=== PATIENT | female | born 1965 | race Caucasian/White ===

== ENCOUNTER 2024-10-29 06:47 | Day surgery (SDC) | payer MEDICARE, BC, SELFPAY ==
[2024-10-22 14:17] VITALS: BMI 37.8
[2024-10-29 07:46] VITALS: BP 155/96; PULSE 73; RESP 18; TEMP 36.5; O2SAT 97
[2024-10-29] MEDS: LACTATED RINGERS 1000ML 1,000 ML 50 ML IV (07:56)
--- NOTE | 2024-10-29 08:07 | P.PNANES_ITS ---
[facility] Disclaimer: The information contained in this section may have been updated after the patient was seen, as this information can be updated by other users. Medical History Small vessel disease, cerebrovascular Cervical dystonia PTSD (post-traumatic stress disorder) Anxiety Schatzki's ring Osteopenia Internal hemorrhoid Hypersomnia Hiatal hernia Fibromyalgia GERD (gastroesophageal reflux disease) Depression Cricopharyngeal spasm Colon polyps Back pain Asthma Surgical History History of colonoscopy with polypectomy History of removal of neck cyst History of rhinoplasty Family History Father Cancer Mother Cancer Grandfather Cancer Social History Smoking Status: Former smoker alcohol intake: never substance use type: denies use current occupational status: retired Travel in the last 8 weeks?: None caffeine: Yes Have you lived/traveled outside [place] in past 30 days?: No Contact w/someone who lives/traveled outside [place] past 30 days?: No Exposure to someone with infectious disease in past 14 days?: No Do you have a fever (greater than 100.4 F or 38 C)?: No Have you tested positive for COVID-19?: No Exposed to someone with COVID-19 in past 14 days?: No Do you have a sore throat?: No Do you have a cough?: No Do you have any weakness?: No Are you experiencing any nausea/vomitting?: No Do you have any diarrhea?: No Are you experiencing any unusual bleeding?: No Do you have any muscle aches/pain?: No Do you have any abdominal pain?: No Are you experiencing loss of taste or smell?: No [facility] Anesthesia Checklist Patient Identification Patient Identification: Arm Band Structural Data Admitted From: Home Planned Operative Procedure/s: EGD Consent for Planned Operative Procedure(s) Verified: Yes Verified Documents: Surgical Consent and History and Physical NPO Status Verified Time NPO: 00:00 Additional verifications Anesthesia Reactions: No Airway Assessment Mallampati Score:: Class II C-Spine Mobility Assessed: Yes TMJ Mobility Assessed: Yes Dentition: Good Dentition (upper dentures) Neurological Assessment Level of Consciousness: Awake, Alert and Appropriate Anesthesia Plan Anesthesia Risk discussed: Yes Anesthesia Plan: Verified ASA Class: II Anesthesia Type: MAC
--- NOTE | 2024-10-29 08:25 | P.HP_ITS ---
History of Present Illness *Admission Date: 10/29/24 *History of present illness: Mrs. Castillo is a 59-year-old female with GERD and Harrison's esophagus who is here for surveillance EGD. The examination is deemed medically necessary for surveillance EGD. The patient has been seen, interviewed and examined prior to the procedure by both myself and the anesthesia provider. [facility] Disclaimer: The information contained in this section may have been updated after the patient was seen, as this information can be updated by other users. Medical History Small vessel disease, cerebrovascular Cervical dystonia PTSD (post-traumatic stress disorder) Anxiety Schatzki's ring Osteopenia Internal hemorrhoid Hypersomnia Hiatal hernia Fibromyalgia GERD (gastroesophageal reflux disease) Depression Cricopharyngeal spasm Colon polyps Back pain Asthma Surgical History History of colonoscopy with polypectomy History of removal of neck cyst History of rhinoplasty Family History Father Cancer Mother Cancer Grandfather Cancer Social History Smoking Status: Former smoker alcohol intake: never substance use type: denies use current occupational status: retired Travel in the last 8 weeks?: None caffeine: Yes Have you lived/traveled outside [place] in past 30 days?: No Contact w/someone who lives/traveled outside [place] past 30 days?: No Exposure to someone with infectious disease in past 14 days?: No Do you have a fever (greater than 100.4 F or 38 C)?: No Have you tested positive for COVID-19?: No Exposed to someone with COVID-19 in past 14 days?: No Do you have a sore throat?: No Do you have a cough?: No Do you have any weakness?: No Are you experiencing any nausea/vomitting?: No Do you have any diarrhea?: No Are you experiencing any unusual bleeding?: No Do you have any muscle aches/pain?: No Do you have any abdominal pain?: No Are you experiencing loss of taste or smell?: No Review of Systems Review of Systems Review of systems (narrative): Negative *Cardiovascular Comments: Negative *Gastrointestinal Comments: Negative *Genitourinary Comments: Negative *Musculoskeletal Comments: Negative *Neurologic Comments: Negative Meds Home Medications and Allergies Home Medications ?Medication ?Instructions ?Recorded ?Confirmed ?Type aspirin 325 mg tablet 325 mg PO DAILY 08/27/24 10/29/24 History atorvastatin 20 mg tablet 20 mg PO DAILY 08/27/24 10/29/24 History baclofen 10 mg tablet 10 mg PO BID 08/27/24 10/29/24 History benazepril 40 mg tablet 40 mg PO DAILY 08/27/24 10/29/24 History dextroamphetamine-amphetamine 20 20 mg PO BID 08/27/24 10/29/24 History mg tablet (Adderall) diphenhydramine HCl 25 mg tablet 25 mg PO QID 08/27/24 10/29/24 History (Benadryl Allergy) duloxetine 60 mg capsule,delayed 60 mg PO DAILY 08/27/24 10/29/24 History release melatonin 5 mg capsule 5 mg PO HS 08/27/24 10/29/24 History metoclopramide HCl 5 mg tablet 5 mg PO QAC 08/27/24 10/29/24 History gyubmiot-vmn-xubcu acid 0.4 1 tab PO DAILY 08/27/24 10/29/24 History mg-lycopene 300 mcg-lutein 250 mcg tablet (Centrum Silver) omeprazole 40 mg capsule,delayed 40 mg PO DAILY 08/27/24 10/29/24 History release polyethylene glycol 3350 17 17 g PO DAILY 08/27/24 10/29/24 History gram/dose oral powder (Miralax) pregabalin 75 mg capsule (Lyrica) 75 mg PO BID 08/27/24 10/29/24 History prucalopride 2 mg tablet 2 mg PO DAILY 08/27/24 10/29/24 History (Motegrity) psyllium husk 3.4 gram/5.4 gram 1 tsp PO DAILY 08/27/24 10/29/24 History oral powder (Metamucil) New Prescriptions to Start Prescriptions: Allergies Allergy/AdvReac Type Severity Reaction Status Date / Time latex Allergy Mild ITCHING Verified 10/29/24 07:41 Surgical Glue Allergy Intermediate ITCHING Uncoded 10/29/24 07:41 Exam Data for Last 24 hours Vital signs and Labs for Last 24 Hours: Temp Pulse Resp BP Pulse Ox O2 Del Method 97.7 F 73 18 155/96 H 97 Room Air 10/29/24 07:46 10/29/24 07:46 10/29/24 07:46 10/29/24 07:46 10/29/24 07:46 10/29/24 07:46 *Routine HEENT Exam Head: Present normocephalic Eye: Present EOMI and PERRL ENT: Present mucous membranes moist *Routine Neck Exam Neck: Present supple *Routine Respiratory Exam Respiratory: Present CTA bilaterally *Routine Cardiovascular Exam Cardiovascular: Present RRR *Routine Abdominal Exam Abdominal: Present soft and normoactive bowel sounds; Absent tenderness *Routine Rectal Exam Rectal:: deferred *Routine Genitalia Exam Genitalia:: deferred *Routine Extremities Exam Extremities: Absent cyanosis, clubbing or edema *Routine Skin Exam Skin: Present warm; Absent rash *Routine Neurological Exam Neurological: Present alert and oriented X3 Assessment and Plan *Assessment and plan (1) Harrison's esophagus determined by endoscopy: Status: Acute Category: Medical Code(s): K22.70 - Harrison's esophagus without dysplasia (2) Bloating: Status: Acute Category: Medical Code(s): R14.0 - Abdominal distension (gaseous) Plan A/P: 1. History of Harrison's esophagus is the preprocedural diagnosis. The patient will be anesthetized/sedated using MAC sedation. The patient has been seen and examined. Cardiac and lung assessment prior to the examination is stable. Proceed with planned surveillance upper endoscopy.
[2024-10-29 08:30] VITALS: O2SAT 100
--- NOTE | 2024-10-29 08:33 | HMH.PROCNOTE ---
[facility] Procedure Note Date: 10/29/24 Time: 08:43 Procedure Note:: Upper Endoscopy Procedure Report: Esophagogastroduodenoscopy with cold biopsies Endoscopost: Elmo Cuello II, MD Referring Physician: Aneesh Perez MD Date of Procedure: October 29, 2024 Equipment: Olympus GIF 190 standard upper endoscope Sedation: MAC sedation Indications: Mrs. Castillo is a 59-year-old female with functional dyspepsia and history of Harrison's esophagus. She is doing well and is currently on baclofen, metoclopramide, omeprazole, MiraLAX and prucalopride. She was having a lot of constipation, bloating and reflux. This has improved. She still gets some intermittent gassiness. She reports no dysphagia or globus sensation. She was having more belching. Procedure: Prior to the procedure, a history and physical exam was performed, and patient's medications and allergies were reviewed. The risks, benefits and alternatives of the sedation and procedure were discussed with the patient. All questions were answered and informed consent was obtained. The patient was brought to the procedure room. Patient identification and proposed procedure were verified by the physician and the nurse. The patient was placed in a left lateral decubitus position and the scope was passed under direct vision. Throughout the procedure, the patient's blood pressure, pulse, and oxygen saturations were monitored continuously. The upper GI endoscopy was accomplished without difficulty. The patient tolerated the procedure well. Findings: The scope was passed directly into the upper esophagus and advanced to the fourth portion of duodenum and proximal jejunum. Cold biopsies were taken from the proximal jejunum for disaccharidase assay. The post bulbar duodenum and duodenal bulb were normal with normal mucosa and conniventes. The scope was withdrawn through a normal duodenal bulb and pylorus into the stomach. There was mild linear reactive gastropathy of the antrum. The body and fundus of the stomach were normal. Upon retroflexion there was no hiatal hernia. The scope was then withdrawn into the esophagus. There was no evidence of reflux esophagitis or Harrison's. There was a serrated Z-line and biopsies were taken at the GE junction (to rule out intestinal metaplasia of the GE junction). The remainder of the esophageal mucosa was normal. Impression: 1. Nonerosive GERD 2. Mild antral linear reactive gastropathy Plan: I will follow-up the biopsies. There is no evidence of Harrison's esophagus but she may have some intestinal metaplasia of the GE junction. Because of her gassiness and bloating, I will check the disaccharidase assay.
[2024-10-29 08:51] VITALS: BP 161/88; PULSE 90; RESP 16; TEMP 36.1; O2SAT 96
[2024-10-29 09:01] VITALS: BP 132/77; PULSE 80; RESP 16; O2SAT 96
[2024-10-29 09:11] VITALS: BP 143/75; PULSE 78; RESP 16; O2SAT 96
[2024-10-29 09:21] VITALS: BP 158/81; PULSE 74; RESP 16; O2SAT 97
[2024-11-03 16:43] LABS: Disclaimer Notes (.); Interpretation Notes (.); Lactase 77.42 (>/= 14.0); Maltase 258.43 (>/= 110.0); Palatinase 24.23 (>/= 8.5); Reference Notes (.); Sucrase 105.61 (>/= 25.0)
== END 2024-10-29 09:21 | disposition home or self-care (01) ==
PROVIDERS: PCP Pediatrics; Visit Provider Internal Medicine Gastroenterology
PROC: 0DJ08ZZ Inspection of Upper Intestinal Tract, Via Natural or Artificial Opening Endoscopic (ICD-10-PCS; CPT 43239; principal; 2024-10-29 08:30)
DX: K30 Functional dyspepsia (principal); K22.70 Barrett's esophagus without dysplasia; K59.00 Constipation, unspecified; R14.0 Abdominal distension (gaseous); K21.9 Gastro-esophageal reflux disease without esophagitis; K31.9 Disease of stomach and duodenum, unspecified
CPT/HCPCS: 43239; 82657; J7120